=== PATIENT | male | born 1945 | race Caucasian/White ===

== ENCOUNTER 2018-06-03 11:04 | Emergency (ER) | payer OTHER ==
[~2018-06-03 11:04] MED LIST: ALLO-119 PO; ASPI-1471 PO; ATOR40TA24 PO; CHOL10005 PO; INSU100I35 SQ; LOSA100T75 PO; METF-452 PO; METO25TA93 PO; OMEP40CA48 PO; RANI150C17 PO
--- NOTE | 2018-06-03 11:20 | ER Report ---
History and Physical Time Seen By MD: 11:18 Hx. of Stated Complaint: chest cold for 3-4 days HPI/ROS CHIEF COMPLAINT: Chest congestion HISTORY OF PRESENT ILLNESS: This is a 72-year-old male presents to the emergency department for chest congestion. Over the last 3-4 days he's had increased chest congestion with intermittent chest pain with coughing, states he does have a semi-productive cough. He's had intermittent aches and chills, no nausea or vomiting. Denies chest pain. No rashes. No headaches. No diarrhea. REVIEW OF SYSTEMS: Constitutional: As above. Eyes: No discharge. ENT: No sore throat. Cardiovascular: No chest pain, no palpitations. Respiratory: As above. Gastrointestinal: No abdominal pain, no vomiting. Genitourinary: No hematuria. Musculoskeletal: No back pain. Skin: No rashes. Neurological: No headache. Allergies: Coded Allergies: No Known Drug Allergies (Unverified , 06/27/17) Home Meds Active Scripts Albuterol Sulfate 0.083% (ALBUTEROL SULFATE 0.083%) 2.5 Mg/3 Ml Vial.neb, 2.5 MG INH Q4-6H PRN for SHORTNESS OF BREATH, #20 VIAL Prov:CLAUDE LANCE DISTRESSER-BC 06/03/18 Omeprazole (OMEPRAZOLE) 40 Mg Capsule.dr, 40 MG PO QDAY for 30 Days, #30 CAP Prov:ANALY RECIO JR, MD 05/23/17 Reported Medications Aspirin (ASPIR 81) 81 Mg Tablet.dr, 81 MG PO QDAY, TAB 05/24/17 Ranitidine Hcl (RANITIDINE HCL) 150 Mg Capsule, 150 MG PO BID, CAPSULE 05/24/17 Metoprolol Tartrate (METOPROLOL TARTRATE) 25 Mg Tablet, 2 TAB PO BID, TAB 05/24/17 Metformin Hcl (METFORMIN HCL) 1,000 Mg Tablet, 1 TAB PO BID, TAB 05/24/17 Losartan Potassium (LOSARTAN POTASSIUM) 100 Mg Tablet, 100 MG PO QDAY 05/24/17 Insulin Aspart 100 Un/Ml Pen (NOVOLOG FLEXPEN) 100 Unit/1 Ml Insuln.pen, 100 UNIT SQ 05/24/17 Cholecalciferol (Vitamin D3) (VITAMIN D3) Unknown Strength Tablet, PO, TAB 05/24/17 Atorvastatin Calcium (LIPITOR) 40 Mg Tablet, 1 TAB PO QDAY, TAB 05/24/17 Allopurinol (ZYLOPRIM) 300 Mg Tablet, 300 MG PO QDAY, TAB 05/24/17 Past Medical/Surgical History Patient has a past medical and surgical history of hypertension, hypercholesterolemia, questionable COPD, broken arm. Reviewed Nurses Notes: Yes Smoking Status: Former Smoker Constitutional Vital Sign - Last 24 Hours 06/03/18 06/03/18 06/03/18 06/03/18 10:38 11:09 11:30 11:38 Temp 99.4 Pulse 74 71 70 Resp 20 18 B/P (MAP) 148/80 110/65 (80) Pulse Ox 91 85 88 O2 Delivery Nasal Cannula Room Air O2 Flow Rate 2.0 06/03/18 06/03/18 06/03/18 06/03/18 11:38 11:40 11:45 12:00 Pulse 69 68 Resp 18 B/P (MAP) 111/69 (83) Pulse Ox 91 91 O2 Delivery Nasal Cannula O2 Flow Rate 2.0 2.0 06/03/18 12:42 Pulse Ox 91 O2 Delivery Room Air Physical Exam General Appearance: The patient is alert, has no immediate need for airway protection and no signs of toxicity. Eyes: Pupils equal and round no pallor or injection. ENT, Mouth: Mucous membranes are dry. Respiratory: Diminished lung sounds in the bases, and expiratory wheezes in the upper lobes otherwise unremarkable. Cardiovascular: Regular rate and rhythm, no murmurs, clicks or rubs. Gastrointestinal: Abdomen is round, soft and non tender, no masses, bowel sounds normal. Neurological: Alert and oriented 4. Moving all extremities. Following all commands. No focal neuro deficits. Skin: Warm and dry, no rashes. Musculoskeletal: Neck is supple non tender. Extremities are nontender, nonswollen and have full range of motion. DIFFERENTIAL DIAGNOSIS: After history and physical exam differential diagnosis was considered for shortness of breath including but not limited to pulmonary infectious process, COPD, asthma, influenza, pulmonary embolus and congestive heart failure. Medical Decision Making Data Points Result Diagram: 06/03/18 1135 06/03/18 1135 Laboratory Hematology Test 06/03/18 11:35 06/03/18 12:30 Red Blood Count 4.14 M/uL (4.00-5.60) Mean Corpuscular Volume 92.8 fL (80.0-96.0) Mean Corpuscular Hemoglobin 31.5 pg (26.0-33.0) Mean Corpuscular Hemoglobin Concent 33.9 g/dL (32.0-36.0) Red Cell Distribution Width 14.5 % (11.5-14.5) Mean Platelet Volume 8.0 fL (7.2-11.1) Neutrophils (%) (Auto) 73.7 % (39.4-72.5) Lymphocytes (%) (Auto) 16.8 % (17.6-49.6) Monocytes (%) (Auto) 8.2 % (4.1-12.4) Eosinophils (%) (Auto) 0.9 % (0.4-6.7) Basophils (%) (Auto) 0.4 % (0.3-1.4) Nucleated RBC Relative Count (auto) 0.1 /100WBC Neutrophils # (Auto) 3.7 K/uL (2.0-7.4) Lymphocytes # (Auto) 0.8 K/uL (1.3-3.6) Monocytes # (Auto) 0.4 K/uL (0.3-1.0) Eosinophils # (Auto) 0.0 K/uL (0.0-0.5) Basophils # (Auto) 0.0 K/uL (0.0-0.1) Nucleated RBC Absolute Count (auto) 0.01 K/uL Sodium Level 135 mmol/L (137-145) Potassium Level 4.7 mmol/L (3.5-5.0) Chloride Level 100 mmol/L (98-107) Carbon Dioxide Level 24 mmol/L (22-30) Blood Urea Nitrogen 24 mg/dl (9-21) Creatinine 1.70 mg/dl (0.66-1.25) Glomerular Filtration Rate Calc 39.8 Random Glucose 246 mg/dl (75-110) Calcium Level 8.5 mg/dl (8.4-10.2) Total Bilirubin 0.6 mg/dl (0.2-1.3) Aspartate Amino Transf (AST/SGOT) 23 U/L (0-35) Alanine Aminotransferase (ALT/SGPT) 28 U/L (0-56) Alkaline Phosphatase 101 U/L (0-126) Troponin I < 0.012 ng/ml Total Protein 6.7 g/dl (6.3-8.2) Albumin 3.9 g/dl (3.5-5.0) Influenza Virus Type A (PCR) Positive (NEGATIVE) Influenza Virus Type B (PCR) Negative (NEGATIVE) Urine Color Yellow Urine Clarity Slightly-cloudy Urine pH 5.0 pH (4.8-9.5) Urine Specific Coffey 1.021 Urine Protein 100 mg/dL (NEGATIVE) Urine Glucose (UA) 50 mg/dL (NEGATIVE) Urine Ketones Trace mg/dL (NEGATIVE) Urine Blood Negative (NEGATIVE) Urine Nitrite Negative (NEGATIVE) Urine Bilirubin Negative (NEGATIVE) Urine Urobilinogen Negative mg/dL (0.2-1.9) Urine Leukocyte Esterase Negative (NEGATIVE) Urine RBC 1 /HPF (0-2/HPF) Urine WBC 1 /HPF (0-5/HPF) Urine Squamous Epithelial Cells None /LPF (</=FEW) Urine Bacteria Negative /HPF (NONE-FEW) Urine Hyaline Casts Few /LPF (NONE-FEW) Urine Mucus None /HPF (NONE-FEW) Chemistry Test 06/03/18 11:35 06/03/18 12:30 White Blood Count 5.0 k/uL (4.5-11.0) Red Blood Count 4.14 M/uL (4.00-5.60) Hemoglobin 13.0 g/dL (14.0-18.0) Hematocrit 38.4 % (42.0-52.0) Mean Corpuscular Volume 92.8 fL (80.0-96.0) Mean Corpuscular Hemoglobin 31.5 pg (26.0-33.0) Mean Corpuscular Hemoglobin Concent 33.9 g/dL (32.0-36.0) Red Cell Distribution Width 14.5 % (11.5-14.5) Platelet Count 155 K/uL (150-450) Mean Platelet Volume 8.0 fL (7.2-11.1) Neutrophils (%) (Auto) 73.7 % (39.4-72.5) Lymphocytes (%) (Auto) 16.8 % (17.6-49.6) Monocytes (%) (Auto) 8.2 % (4.1-12.4) Eosinophils (%) (Auto) 0.9 % (0.4-6.7) Basophils (%) (Auto) 0.4 % (0.3-1.4) Nucleated RBC Relative Count (auto) 0.1 /100WBC Neutrophils # (Auto) 3.7 K/uL (2.0-7.4) Lymphocytes # (Auto) 0.8 K/uL (1.3-3.6) Monocytes # (Auto) 0.4 K/uL (0.3-1.0) Eosinophils # (Auto) 0.0 K/uL (0.0-0.5) Basophils # (Auto) 0.0 K/uL (0.0-0.1) Nucleated RBC Absolute Count (auto) 0.01 K/uL Glomerular Filtration Rate Calc 39.8 Calcium Level 8.5 mg/dl (8.4-10.2) Total Bilirubin 0.6 mg/dl (0.2-1.3) Aspartate Amino Transf (AST/SGOT) 23 U/L (0-35) Alanine Aminotransferase (ALT/SGPT) 28 U/L (0-56) Alkaline Phosphatase 101 U/L (0-126) Troponin I < 0.012 ng/ml Total Protein 6.7 g/dl (6.3-8.2) Albumin 3.9 g/dl (3.5-5.0) Influenza Virus Type A (PCR) Positive (NEGATIVE) Influenza Virus Type B (PCR) Negative (NEGATIVE) Urine Color Yellow Urine Clarity Slightly-cloudy Urine pH 5.0 pH (4.8-9.5) Urine Specific Coffey 1.021 Urine Protein 100 mg/dL (NEGATIVE) Urine Glucose (UA) 50 mg/dL (NEGATIVE) Urine Ketones Trace mg/dL (NEGATIVE) Urine Blood Negative (NEGATIVE) Urine Nitrite Negative (NEGATIVE) Urine Bilirubin Negative (NEGATIVE) Urine Urobilinogen Negative mg/dL (0.2-1.9) Urine Leukocyte Esterase Negative (NEGATIVE) Urine RBC 1 /HPF (0-2/HPF) Urine WBC 1 /HPF (0-5/HPF) Urine Squamous Epithelial Cells None /LPF (</=FEW) Urine Bacteria Negative /HPF (NONE-FEW) Urine Hyaline Casts Few /LPF (NONE-FEW) Urine Mucus None /HPF (NONE-FEW) Urinalysis Test 06/03/18 12:30 Urine Color Yellow Urine Clarity Slightly-cloudy Urine pH 5.0 pH (4.8-9.5) Urine Specific Coffey 1.021 Urine Protein 100 mg/dL (NEGATIVE) Urine Glucose (UA) 50 mg/dL (NEGATIVE) Urine Ketones Trace mg/dL (NEGATIVE) Urine Blood Negative (NEGATIVE) Urine Nitrite Negative (NEGATIVE) Urine Bilirubin Negative (NEGATIVE) Urine Urobilinogen Negative mg/dL (0.2-1.9) Urine Leukocyte Esterase Negative (NEGATIVE) Urine RBC 1 /HPF (0-2/HPF) Urine WBC 1 /HPF (0-5/HPF) Urine Squamous Epithelial Cells None /LPF (</=FEW) Urine Bacteria Negative /HPF (NONE-FEW) Urine Hyaline Casts Few /LPF (NONE-FEW) Urine Mucus None /HPF (NONE-FEW) EKG/Imaging EKG Interpretation 12 lead EKG: Time of EKG 1125. Rhythm: Sinus rhythm with a ventricular rate of 71 bpm. 1st degree AV block. Noble: normal QRS: normal ST segments: No ST depression or elevation identified. Imaging Location: [facility] Patient: Tacho Gonzalez : 1945 Visit/Account:[id number] Date of Sevice: 06/03/2018 2 VIEWS CHEST INDICATION: Chest pain. Cough and shortness breath. COMPARISON: None available FINDINGS: Cardiomediastinal silhouette and pulmonary vessels within normal limits. There is no focal infiltrate or lobar consolidation. There is no pneumothorax or pleural effusion. There is a faint nodular opacity in the medial right upper lobe however this is underlying the first rib and sternal junction. No other nodules. Upper abdomen is unremarkable. No acute bony abnormality. IMPRESSION: 1. No acute cardiopulmonary process. 2. Small nodular opacity seen in the medial right upper lobe. This may be costochondral calcification from the first rib and manubrium. However apical lordotic view of the chest can evaluate for any underlying parenchymal abnormality. Report Dictated By: Anthony Avilez at 06/03/2018 12:39 PM Report E-Signed By: Anthony Avilez at 06/03/2018 12:41 PM WSN:[id number] ED Course/Re-evaluation Clinical Indication for ER IV: Hydration, IV Access ED Course The patient was admitted to a room. A history of physical were obtained. Differential diagnoses were considered. An IV was started. A 1 L normal saline bolus was given. EKG showing sinus rhythm with a first-degree AV block. A CBC, CMP, troponin were obtained. Patient was given 1 DuoNeb which did provide some relief of the patient's symptoms, increased aeration on reexamination. CBC unremarkable, chemistry showing sodium 135, BUN 24, creatinine 1.7, glucose 246, negative troponin, UA showing glucose other pearson unremarkable, positive for influenza A. No acute findings on a two-view chest x-ray, a nodule was noted on the x-ray, I discussed this with the patient. [facility] however I did recommend establishing with a primary care provider locally. The patient was hypoxic, I did recommend going home with oxygen as he was reluctant to stay in the hospital, we were able to sit the patient up with home oxygen, a nebulizer and concentrator. As the patient's symptoms have been greater than 72 hours, the patient did not meet the recommend criteria for Tamiflu, the patient and I discussed this. Patient states he'll go home, continue wearing the oxygen use the nebulizers as needed, take ibuprofen and Tylenol, follow-up and establish with a primary care provider hopefully within one week. Return to ER for any other concerns or worsening symptoms. Decision to Disposition Date: Jun 03, 2018 Decision to Disposition Time: 13:25 Depart Departure Latest Vital Signs Vital Signs Date Time Temp Pulse Resp B/P (MAP) Pulse Ox O2 Delivery O2 Flow Rate FiO2 06/03/18 12:42 91 Room Air 06/03/18 12:00 68 111/69 (83) 06/03/18 11:45 18 06/03/18 11:40 2.0 06/03/18 11:09 99.4 Impression: Primary Impression: Influenza A Additional Impression: Hypoxia Condition: Improved Disposition: HOME OR SELF-CARE New Scripts Albuterol Sulfate 0.083% (ALBUTEROL SULFATE 0.083%) 2.5 Mg/3 Ml Vial.neb 2.5 MG INH Q4-6H PRN for SHORTNESS OF BREATH, #20 VIAL Prov: CLAUDE LANCE DISTRESSER-BC 06/03/18 Departure Forms: ER Transition Record, Home Oxygen, Nebulizer RX, Home Oxygen Company Chosen by Patient: [facility] Home [facility]xygen Durable Medical Equipment-Oxygen: Oxygen Concentrator, Portable Oxygen Gas, Nebulizer Reason for Use/Diagnosis: Influenza A, hypoxia Start Date of the Order: Jun 03, 2018 Dosage or Concentration (if applicable) - LPM: 2 Route of Administration (if applicable): Nasal Cannula Frequency of Use: Continuous Duration Home O2 Required: 30 Duration Units: Days Room Air Oxygen Saturation: 80 ER Prescribing Physician's Name: Other NPI Numbers for Local ER MDs: Other Medications Reconciliation, Patient Portal Information Patient Instructions: Hypoxia (ED), Influenza (ED) Additional Instructions: You have influenza A. Please use the oxygen when you are sleeping, and if your up moving around. Use the nebulizer as needed. As you have had symptoms for the last 4 days, Tamiflu is not recommended at this time. Antibiotics are not recommended. Take ibuprofen or Tylenol as needed. Be sure to monitor your blood sugars. Get plenty of rest. Continue drinking plenty of water. Please establish with a new primary care provider locally within one week. Return to the emergency department for any acute concerns or worsening symptoms. Problem Qualifiers CLAUDE LANCE DISTRESSER-BC Jun 03, 2018 11:20
[2018-06-03] MEDS ORDERED: NS(*) 0.9% 1000 ML BAG 1,000 ML IV ONE (11:24)
[2018-06-03] MEDS ORDERED: ALBUTEROL/IPRATROPIUM 3 ML NEB NEB ONE (11:25)
[2018-06-03] MEDS ORDERED: ASPIRIN 81 MG CHEW PO ONE (11:25)
[2018-06-03 11:53] LABS: PLATELET COUNT, AUTOMATED 155 K/uL (150-450)
--- NOTE | 2018-06-03 11:54 | EKG ---
FACILITY: [facility] [place] PATIENT NAME: KATERYNA MAHONEY : [id number] MR: [id number] V: [id number] EXAM DATE: ORDERING PHYSICIAN: CLAUDE LANCE TECHNOLOGIST: Test Reason : Blood Pressure : / mmHG Vent. Rate : 071 BPM Atrial Rate : 071 BPM P-R Int : 224 ms QRS Dur : 082 ms QT Int : 388 ms P-R-T Axes : 056 034 059 degrees QTc Int : 421 ms Sinus rhythm with 1st degree AV block Otherwise normal ECG No previous ECGs available Confirmed by Jordan Hobson ([id number]) on 06/03/2018 10:42:31 PM Referred By: Confirmed By:Jordan Henriquez
[2018-06-03 12:00] VITALS: BP 111/69
--- NOTE | 2018-06-03 12:45 | RADIOLOGY IMAGING REPORT ---
FACILITY: [facility] [place] PATIENT NAME: Tacho Gonzalez : 1945 MR: [id number] V: [id number] EXAM DATE: ORDERING PHYSICIAN: CLAUDE LANCE TECHNOLOGIST: Location: [facility] [place] Patient: Tacho Gonzalez : 1945 Visit/Account:[id number] Date of Sevice: 06/03/2018 2 VIEWS CHEST INDICATION: Chest pain. Cough and shortness breath. COMPARISON: None available FINDINGS: Cardiomediastinal silhouette and pulmonary vessels within normal limits. There is no focal infiltrate or lobar consolidation. There is no pneumothorax or pleural effusion. There is a faint nodular opacity in the medial right upper lobe however this is underlying the first rib and sternal junction. No other nodules. Upper abdomen is unremarkable. No acute bony abnormality. IMPRESSION: 1. No acute cardiopulmonary process. 2. Small nodular opacity seen in the medial right upper lobe. This may be costochondral calcification from the first rib and manubrium. However apical lordotic view of the chest can evaluate for any und erlying parenchymal abnormality. Report Dictated By: Anthony Avilez at 06/03/2018 12:39 PM Report E-Signed By: Anthony Avilez at 06/03/2018 12:41 PM WSN:[id number]
[2018-06-03] MEDS ORDERED: ALBU2.5V36 INH (12:55)
== END 2018-06-03 13:30 | disposition home or self-care (01) ==
LOC: ER 11:04
DX: J09.X2 Influenza due to identified novel influenza A virus with other respiratory manifestations (principal); R09.02 Hypoxemia
CPT/HCPCS: 71046; 81001; 84484; 85025; 87502; 93005; 94640; 96360; 99284; J7030; J7620; 82040; 82247; 82310; 82374; 82435; 82565; 82947; 84075; 84132; 84155; 84295; 84450; 84460; 84520

== ENCOUNTER 2018-07-24 16:58 | Inpatient (IN) | payer OTHER ==
[~2018-07-24] VITALS: Ht 177.8 cm; Wt 127.0 kg
[~2018-07-24 16:58] MED LIST changes: -ALBU8.5H IH; -AMLO-127 PO; -CHOL100059 PO; -CITA-137 PO; -FLAS1EAC2 ASDIRECTED; -FLAS1KIT2 SQ; -GABA-547 PO; -LOSA25TA57 PO; -MULT-1167 PO; -MULT-991 PO; -MULT1CAP53 PO; -OMEP-137 PO; -SENN1TAB PO; -SODI104S3; -TERA1CAP38 PO; -TRAM-420 PO; -UBID100C48 PO; -UBIQ75CA PO; -[UNRECOGNIZED DRUG - OTHER] PO; -[UNRECOGNIZED DRUG - OTHER] PO
[2018-07-24] MEDS ORDERED: DIPHTH/TETANUS/ACEL. PERTUSSIS IM ONLY ONE (17:15)
[2018-07-24] MEDS ORDERED: EMS NS 0.9%(*) 1000 ML BAG 1,000 ML IV ONE (17:20)
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
[2018-07-24 17:30] LABS: PLATELET COUNT, AUTOMATED 191 K/uL (150-450)
[2018-07-24] MEDS ORDERED: IOPAMIDOL 76% 150 ML INFUS BTL 0 ML ONE (17:33)
[2018-07-24 17:34] LABS: INR 0.97
[2018-07-24] MEDS ORDERED: IOPAMIDOL 76% 150 ML INFUS BTL 150 ML ONE (17:39)
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
--- NOTE | 2018-07-24 19:07 | RADIOLOGY IMAGING REPORT ---
FACILITY: [facility] - [place] PATIENT NAME: Tacho Gonzalez : 1945 MR: [id number] V: [id number] EXAM DATE: ORDERING PHYSICIAN: ARNAV RAY TECHNOLOGIST: Location: [facility] Patient: Tacho Gonzalez : 1945 Visit/Account:[id number] Date of Sevice: 07/24/2018 CT VERTEBRA CERVICAL (NON CON) EXAMINATION: Cervical spine CT Additional Pertinent history: none COMPARISON STUDIES: none TECHNIQUE: Axial images were obtained from the skull base through the upper thoracic spine without I V contrast administration. Coronal and sagittal reformatted images were obtained from the axial [facility] data. One of the following dose optimization techniques was utilized in the performance of this exam: autom ated exposure control; adjustment of the mA and/or kV according to the patient's size; or use of an i terative reconstruction technique. Specific details can be referenced in the facility's radiology CT exam operational policy. FINDINGS: Pre-vertebral soft tissues: negative Alignment: There is straightening of the normal cervical lordosis. Vertebral bodies: Vertebral bodies are intact. Posterior elements: Posterior elements are intact. Facets are in good alignment. Disc Spaces: There is disc space narrowing at C3-4 to C6-7, with anterior osteophytes seen. Visualized lung / mediastinum: negative IMPRESSION: 1. No evidence of cervical spine fracture or malalignment. 2. Multilevel cervical spondylosis and facet arthropathy. Report Dictated By: Dwight Luis at 07/24/2018 6:56 PM Report E-Signed By: Dwight Luis at 07/24/2018 7:02 PM WSN:[id number]
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
[2018-07-24] MEDS ORDERED: NS(*) 0.9% 1000 ML BAG 1,000 ML IV PRN (19:32)
[2018-07-24] MEDS ORDERED: FLUSH 10 ML SYR IVP PRN (19:35)
[2018-07-24] MEDS ORDERED: ONDANSETRON 4 MG/2 ML VIAL IVP PRN (19:35)
[2018-07-24] MEDS ORDERED: HYDROmorphone PCA 6 MG/30 ML IV PRN (19:35)
[2018-07-24] MEDS ORDERED: NALOXONE HCL 0.4 MG/ML VIAL IVP PRN (19:35)
[2018-07-24] MEDS ORDERED: KCL/D1/2NS 20 MEQ 1000 ML 1,000 ML IV SCH (20:05)
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
[2018-07-24] MEDS: ALBUTEROL/IPRATROPIUM 3 ML NEB NEB SCH (20:26)
[2018-07-24] MEDS ORDERED: PCA LOCKBOX KEYS XX ONE (20:40)
[2018-07-24] MEDS ORDERED: PCA LOCKBOX KEYS XX PRN (20:45)
[2018-07-24 23:25] VITALS: BP 99/70
[2018-07-24] MEDS: INSULIN HUM LISPRO 100 UN/ML 3 ML VIAL SUBQ PRN (23:33)
[2018-07-25 02:16] VITALS: BP 118/86
[2018-07-25] MEDS: ALBUTEROL/IPRATROPIUM 3 ML NEB NEB SCH ×5 (05:45→22:04)
[2018-07-25] MEDS ORDERED: KCL/D1/2NS 20 MEQ 1000 ML 1,000 ML IV SCH (06:54)
[2018-07-25 06:57] LABS: PLATELET COUNT, AUTOMATED 147 K/uL (150-450)
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
[2018-07-25] MEDS ORDERED: MAGNESIUM HYDROXIDE* 30ML UDCP PO PRN (07:25)
[2018-07-25 07:33] VITALS: BP 133/88
[2018-07-25] MEDS ORDERED: PANTOPRAZOLE SOD 40 MG IV VIAL IVP SCH (09:00)
--- NOTE | 2018-07-25 09:06 | NUR ---
Physical Therapy Impression PT/OT co eval complete. Pt is slightly impulsive with transfers, but this may also be due to the fact that he is [place]. Pt completed transfers wtih SBA and RW, ambulation x150' with RW and SBA. SpO2 WNL on 4L O2 with mobility. Pt will benefit from stair training prior to d/c home with his daughter. Physical Therapy Goals 1: Pt to complete bed mobility with SBA 2: Pt to complete transfers with SBA and appropriate AD 3: Pt to ambulate 150' with SBA and appropriate AD 4: Pt to asc/desc flight of stairs with SBA Patient's Goals
--- NOTE | 2018-07-25 09:42 | NUR ---
Occupational Therapy Impression Initial OT/PT evaluation. SBA ambulation x150ft with RW. SpO2 >88% on 4L. Pt impulsive with decreased safety awareness. Declined toileting. Seated up in chair at end of tx. Family and pt educated on where to obtain RW if desired. Pt ready for discharge when medically appropriate. Rec continued assist from family with IADLs. Occupational Therapy Goals 1) Pt will be SBA UB/LB dressing. 2) Pt will be SBA grooming/hygiene. 3) Pt will be SBA toilet task. Patient's Goal
[2018-07-25] MEDS: DOCUSATE SODIUM 100 MG CAP PO SCH ×2 (09:46→21:08)
[2018-07-25] MEDS: POLYETHYLENE GLYCOL 17 GM PKT PO SCH (09:46)
[2018-07-25 11:34] VITALS: BP 115/86
[2018-07-25] MEDS: INSULIN HUM LISPRO 100 UN/ML 3 ML VIAL SUBQ PRN ×2 (12:14→18:32)
[2018-07-25] MEDS: NICOTINE 14 MG/24 HR PATCH TD SCH (14:10)
[2018-07-25 15:19] VITALS: BP 114/88
[2018-07-25 15:48] VITALS: Ht 177.8 cm; Wt 127.0 kg
[2018-07-25 20:20] VITALS: BP 148/70
[2018-07-25] MEDS ORDERED: INSULIN HUM LISPRO 100 UN/ML 3 ML VIAL SUBQ PRN (20:35)
--- NOTE | 2018-07-25 20:46 | Hospitalist Progress Note ---
Subjective Progress Notes Subjective Patient seen to help manage diabetes mellitus. Reviewed his regimen of Lantus, Novolog, and metformin. Physical Exam Vital Signs Date Time Temp Pulse Resp B/P (MAP) Pulse Ox O2 Delivery O2 Flow Rate FiO2 07/25/18 17:48 88 16 07/25/18 17:39 90 Nasal Cannula 4.0 07/25/18 15:19 97.5 114/88 (97) Intake and Output 07/25/18 07:00 Intake Total 900 ml Balance 900 ml IV Total 900 ml # Voids 2 General Appearance: Alert, Awake ENT: Other (multiple abrasions) Result Diagram: 07/25/18 0604 07/25/18 0604 Item Value Date Time Whole Blood Glucose 211 mg/DL H 07/25/18 1829 Whole Blood Glucose 166 mg/DL H 07/25/18 1157 Whole Blood Glucose 145 mg/DL H 07/25/18 0541 Whole Blood Glucose 166 mg/DL H 07/24/18 2329 Whole Blood Glucose 140 mg/DL H 07/24/18 2043 Whole Blood Glucose 122 mg/DL H 07/24/18 1952 Random Glucose 45 mg/dl *L 07/24/18 1630 Assessment and Plan Problems: (1) Diabetes Status: Chronic Assessment & Plan: He has been managed with a regimen of Lantus 60 units SQ qHS, Novolog 33 units AM and 35 units PM, and metformin 500mg BID. He does admit he does not follow an ADA diet. With this regimen, he runs significant risk for hypoglycemia, especially while he is on an ADA diet. Will modify his regimen to Lantus 25 units BID and use SSI Humalog level 3 for now. Will stop the high dose Novolog as it increases the risk of hypoglycemia. Will also hold the metformin for at least 48 hours after the IV contrast he received for CT scan (done 07/24). Will follow along and further modify as needed. Exam Sepsis Risk: No Definite Risk Problem Qualifiers (1) Diabetes: Diabetes mellitus type: type 2 KAIDEN GARCIA MD Jul 25, 2018 20:46
[2018-07-25] MEDS ORDERED: INSULIN GLARGINE 100 U/ML 3 ML PEN SUBQ SCH (21:00)
[2018-07-25] MEDS: TERAZOSIN HCL 1 MG CAP PO SCH (21:08)
[2018-07-25] MEDS: INSULIN GLARGINE 100 U/ML 3 ML PEN SUBQ SCH (21:09)
[2018-07-25 23:22] VITALS: BP 122/72
[2018-07-26] MEDS: ALBUTEROL/IPRATROPIUM 3 ML NEB NEB SCH ×6 (02:28→22:08)
[2018-07-26 03:17] VITALS: BP 132/64
[2018-07-26 06:26] LABS: PLATELET COUNT, AUTOMATED 118 K/uL (150-450)
[2018-07-26 07:59] VITALS: BP 133/76
[2018-07-26] MEDS: POLYETHYLENE GLYCOL 17 GM PKT PO SCH (08:26)
[2018-07-26] MEDS: LOSARTAN POTASSIUM 50 MG TAB PO SCH (08:27)
[2018-07-26] MEDS: INSULIN GLARGINE 100 U/ML 3 ML PEN SUBQ SCH ×2 (08:28→21:37)
[2018-07-26] MEDS: CITALOPRAM HYDROBROM 20 MG TAB PO SCH (08:28)
[2018-07-26] MEDS: DOCUSATE SODIUM 100 MG CAP PO SCH ×2 (08:28→20:27)
[2018-07-26] MEDS: PANTOPRAZOLE SOD 40 MG TABEC PO SCH (08:28)
[2018-07-26] MEDS: NICOTINE 14 MG/24 HR PATCH TD SCH (08:29)
[2018-07-26] MEDS: ENOXAPARIN 40 MG/0.4ML SYR SC SCH (08:29)
--- NOTE | 2018-07-26 08:33 | NUR ---
Shadow from Pharmacy went over med rec with pt [id number] 07/26/18 Addendum: 07/26/18 at 0842 by MORGAN MCMILALN RN Amended: Links added.
[2018-07-26] MEDS: traMADol 50 MG TAB PO PRN ×3 (08:50→20:28)
[2018-07-26] MEDS ORDERED: INSULIN ASPART 100 U/ML 3 ML PEN SQ SCH (09:00)
[2018-07-26] MEDS ORDERED: CARVEDILOL 25 MG TABLET PO SCH (09:00)
[2018-07-26] MEDS ORDERED: TRAM-420 PO (09:08)
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
--- NOTE | 2018-07-26 10:00 | NUR ---
Physical Therapy Impression Pt seated in chair with O2 at 4 L/min upon PT arrival. At baseline, pt does not wear O2 during the day. Pt agreeable to attempt stairs with therapist after toileting. Pt noted to be nodding off and very drowsy during conversation regarding his stairs in the home environment. Pt is very impulsive with turns and use of FWW is somewhat unsafe as he "marcelo it" off to the side and attempts to walk around it when transferring back to the chair. O2 tubing also contributes to increased fall risk, as pt turns opposite the tubing, causing it to be wrapped around his legs with negotiation of pathways in room. Home requires 2 platform steps to access deck, then 4 steps without rail to enter home, followed by full flight of carpeted stairs with rail on L) to descend to basement. Pt is alone for the majority of each day, especially on weekends. Pt will need to be indep with functional mobility and safe decision making regarding medication management and O2 tubing use to return home. Pt is not currently at his prior level of function and would certainly benefit from further short-term subacute rehab prior to return to his basement level apartment. Physical Therapy Goals 1: Pt to complete bed mobility with SBA 2: Pt to complete transfers with SBA and appropriate AD 3: Pt to ambulate 150' with SBA and appropriate AD 4: Pt to asc/desc flight of stairs with SBA Patient's Goals
[2018-07-26 12:08] VITALS: BP 108/58
[2018-07-26] MEDS: ACETAMINOPHEN 325 MG TAB PO PRN (12:32)
--- NOTE | 2018-07-26 12:52 | NUR ---
ECF Referral - Met with patient and daughter and explained rehab philosophy and need for strengthening. Unsure of [place] insurance coverage, confirmed he has Medicare. Will have a 3 night qualifying stay on 07/27. Can be admitted on 07/27 if medically appropriate. PASRR negative.
--- NOTE | 2018-07-26 13:32 | Hospitalist Progress Note ---
Subjective Progress Notes Subjective He has no complaints this morning. He had no acute events overnight. Hospitalist continue to manage diabetes treatment. Patient Complains of: Cardiovascular: No: Chest Pain Respiratory: No: Shortness of Breath Physical Exam Vital Signs Date Time Temp Pulse Resp B/P (MAP) Pulse Ox O2 Delivery O2 Flow Rate FiO2 07/26/18 12:08 98.7 81 18 108/58 (75) 92 Nasal Cannula 4.0 Intake and Output 07/26/18 07:00 Intake Total 676 ml Balance 676 ml Intake Oral 676 ml # Voids 4 General Appearance: Alert, Awake, No Acute Distress Psych: Alert & Oriented X3, Appropriate Mood & Affect Result Diagram: 07/26/1843 07/26/18542 Assessment and Plan Problems: (1) Diabetes Status: Chronic Assessment & Plan: He has been managed with a regimen of Lantus 60 units SQ qHS, Novolog 33 units AM and 35 units PM, and metformin 500mg BID. He does admit he does not follow an ADA diet. With this regimen, he runs significant risk for hypoglycemia, especially while he is on an ADA diet. Will modify his regimen to Lantus 25 units BID and use SSI Humalog level 3 for now. Will stop the high dose Novolog as it increases the risk of hypoglycemia. Will also hold the metformin for at least 48 hours after the IV contrast he received for CT scan (done 07/24). Will follow along and further modify as needed. Exam Sepsis Risk: No Definite Risk Problem Qualifiers (1) Diabetes: Diabetes mellitus type: type 2 Diabetes mellitus fire inspector insulin use: with fdc use Diabetes mellitus complication status: without complication Qualified Codes: E11.9 - Type 2 diabetes mellitus without complications; Z79.4 - monogram maker (current) use of insulin LIZBET HERRERA ATHLETIC SHOE DESIGNER Jul 26, 2018 13:32
--- NOTE | 2018-07-26 14:35 | NUR ---
Occupational Therapy Impression CGA ambulation with RW. V/c's for safety and use of RW. Total A to manage O2 tubing. SBA toileting. Close SBA standing oral care sinkfront. Mod (I) bed mobility with use of trapeze. Pt with decreased balance, poor safety awareness. VSS. SpO2>90% on 4L. Rec STSAR. Occupational Therapy Goals 1) Pt will be SBA UB/LB dressing. 2) Pt will be SBA grooming/hygiene. 3) Pt will be SBA toilet task. Patient's Goal
[2018-07-26 15:57] VITALS: BP 111/64
[2018-07-26] MEDS ORDERED: metFORMIN HCL 500 MG TAB PO SCH (17:00)
[2018-07-26] MEDS: metFORMIN HCL 500 MG TAB PO SCH (17:29)
[2018-07-26 20:17] VITALS: BP 129/80
[2018-07-26] MEDS: CARVEDILOL 25 MG TABLET PO SCH (20:27)
[2018-07-26] MEDS: TERAZOSIN HCL 1 MG CAP PO SCH (20:27)
[2018-07-26] MEDS: GABAPENTIN 100 MG CAP PO SCH (20:28)
[2018-07-26] MEDS ORDERED: ATORVASTATIN 10 MG TAB PO SCH (21:00)
[2018-07-26 23:38] VITALS: BP 106/80
[2018-07-27] MEDS: traMADol 50 MG TAB PO PRN ×2 (01:22→10:04)
[2018-07-27] MEDS: ALBUTEROL/IPRATROPIUM 3 ML NEB NEB SCH ×3 (02:38→09:52)
[2018-07-27 03:24] VITALS: BP 125/68
[2018-07-27 07:01] VITALS: BP 120/75
[2018-07-27] MEDS ORDERED: BISACODYL 10 MG SUPP PR ONE (08:00)
[2018-07-27] MEDS ORDERED: BISACODYL 10 MG SUPP PR PRN (08:00)
--- NOTE | 2018-07-27 08:18 | Hospitalist Progress Note ---
Subjective Progress Notes Subjective Feeling better overall. Physical Exam Vital Signs Date Time Temp Pulse Resp B/P (MAP) Pulse Ox O2 Delivery O2 Flow Rate FiO2 07/27/18 07:50 92 Nasal Cannula 4.5 07/27/18 07:01 98.5 75 16 120/75 (90) Intake and Output 07/27/18 07:00 Intake Total 840 ml Balance 840 ml Intake Oral 840 ml # Voids 4 General Appearance: Alert, Awake, Other (Slight increased work of breathing. Large hematoma over left forehead.) Eyes: Other (Ecchymosis.) ENT: Other (Facial bruising and abrasions noted.) Cardiovascular: Regular Rate and Rhythm Respiratory: Other (Diffuse expiratory wheezing.) GI: Soft and Non-Tender Extremities: Warm, Perfused Integumentary: Other (Scattered hematomas, ecchymotic areas and abrasions over face and head.) Psych: Alert & Oriented X3, Appropriate Mood & Affect Result Diagram: 07/26/1854207/26/18542 Assessment and Plan Problems: (1) Diabetes Status: Chronic Assessment & Plan: He has been managed with a regimen of Lantus 60 units SQ qHS, Novolog 33 units AM and 35 units PM, and metformin 500mg BID. He does admit he does not follow an ADA diet. With this regimen, he runs significant risk for hypoglycemia, especially while he is on an ADA diet. Will modify his regimen to Lantus 25 units BID and use SSI Humalog level 3 for now. Will stop the high dose Novolog as it increases the risk of hypoglycemia. Will also hold the metformin for at least 48 hours after the IV contrast he received for CT scan (done 07/24). Will follow along and further modify as needed. His blood sugars have been nicely controlled on the current inpatient regimen. Will continue. He remains off of metformin for now. (2) COPD (chronic obstructive pulmonary disease) Status: Chronic Assessment & Plan: He is wheezing today.The patient does use inhalers at home. He can not recall the names. Will start Symbicort and add albuterol prn. Time Spent on Plan of Care: < 30 min Exam Sepsis Risk: No Definite Risk Problem Qualifiers (1) Diabetes: Diabetes mellitus type: type 2 Diabetes mellitus prison insulin use: with termite control technician use Diabetes mellitus complication status: without complication Qu alified Codes: E11.9 - Type 2 diabetes mellitus without complications; Z79.4 - intermission coordinator (current) use of insulin MINERVA GARCIA MD Jul 27, 2018 08:17
[2018-07-27] MEDS ORDERED: ALLOPURINOL 300 MG TAB PO SCH (09:00)
[2018-07-27] MEDS ORDERED: amLODIPine BESYL(*) 5 MG TAB PO SCH (09:00)
[2018-07-27] MEDS ORDERED: BUDESO/FORMOT 160/4.5 MCG 6 GM INH SCH (09:00)
[2018-07-27] MEDS: ENOXAPARIN 40 MG/0.4ML SYR SC SCH (09:40)
[2018-07-27] MEDS: PANTOPRAZOLE SOD 40 MG TABEC PO SCH (09:41)
[2018-07-27] MEDS: CARVEDILOL 25 MG TABLET PO SCH (09:41)
[2018-07-27] MEDS: POLYETHYLENE GLYCOL 17 GM PKT PO SCH (09:41)
[2018-07-27] MEDS: metFORMIN HCL 500 MG TAB PO SCH (09:41)
[2018-07-27] MEDS: GABAPENTIN 100 MG CAP PO SCH (09:41)
[2018-07-27] MEDS: DOCUSATE SODIUM 100 MG CAP PO SCH (09:41)
[2018-07-27] MEDS: LOSARTAN POTASSIUM 50 MG TAB PO SCH (09:42)
[2018-07-27] MEDS: CITALOPRAM HYDROBROM 20 MG TAB PO SCH (09:42)
[2018-07-27] MEDS: ACETAMINOPHEN 325 MG TAB PO PRN (10:04)
[2018-07-27] MEDS: NICOTINE 14 MG/24 HR PATCH TD SCH (10:04)
[2018-07-27] MEDS: INSULIN GLARGINE 100 U/ML 3 ML PEN SUBQ SCH (10:05)
== END 2018-07-27 10:05 | DRG 914 ==
LOC: ER 18:09 → MED 19:51
PROVIDERS: ADMIT Surgery; ATTEND Surgery
DX: S36.892A Contusion of other intra-abdominal organs, initial encounter (principal); Z68.41 Body mass index [BMI] 40.0-44.9, adult; S22.20XA Unspecified fracture of sternum, initial encounter for closed fracture; S22.43XA Multiple fractures of ribs, bilateral, initial encounter for closed fracture; E66.2 Morbid (severe) obesity with alveolar hypoventilation; V49.9XXA Car occupant (driver) (passenger) injured in unspecified traffic accident, initial encounter; S01.02XA Laceration with foreign body of scalp, initial encounter; Z91.11 Patient's noncompliance with dietary regimen; E11.649 Type 2 diabetes mellitus with hypoglycemia without coma; Z79.4 Long term (current) use of insulin; Z79.84 Long term (current) use of oral hypoglycemic drugs; I10 Essential (primary) hypertension
CPT/HCPCS: 36415; 36416; 70450; 71046; 71260; 72125; 74177; 80320; 82040; 82247; 82248; 82310; 82374; 82435; 82565; 82947; 82948; 83605; 83690; 84075; 84132; 84155; 84295; 84450; 84460; 84520; 85025; 85610; 85730; 90471; 90715; 94640; 97161; 97166; 99285; C9113; J1170; J1650; J1815; J3480; Q9967

== ENCOUNTER → 2018-07-24 | Outpatient (CLI) | payer OTHER ==
[~2018-07-24] MED LIST changes: +ALBU2.5V36 INH; +ALBU8.5H IH; +AMLO-127 PO; +CARV25TA78 PO; +CHOL100059 PO; +CITA-137 PO; +CITA-157 PO; +FLAS1EAC2 ASDIRECTED; +FLAS1KIT2 SQ; +GABA-547 PO; +GABA-549 PO; +LANI SUBQ; +LOSA25TA57 PO; +METF-450 PO; +MULT-1167 PO; +MULT-991 PO; +MULT1CAP53 PO; +OMEP-137 PO; +OXYGENHOME INH; +SENN1TAB PO; +SODI104S3; +TERA1CAP38 PO; +TERA5CAP59 PO; +TRAM-420 PO; +UBID100C48 PO; +UBIQ75CA PO; +[UNRECOGNIZED DRUG - OTHER] PO; +[UNRECOGNIZED DRUG - OTHER] PO
[2018-07-25 15:48] VITALS: BMI 40.2
== END ==
LOC: AMB 16:08
PROVIDERS: ATTEND Nurse Practitioner
DX: S00.83XA Contusion of other part of head, initial encounter (principal); R07.81 Pleurodynia; R10.11 Right upper quadrant pain; E11.649 Type 2 diabetes mellitus with hypoglycemia without coma; V49.9XXA Car occupant (driver) (passenger) injured in unspecified traffic accident, initial encounter
CPT/HCPCS: A0425; A0427

== ENCOUNTER 2018-07-27 10:05 | Inpatient (IN) | payer MEDICARE, OTHER ==
[2018-07-25 15:48] VITALS: Ht 177.8 cm; Wt 125.9 kg
[~2018-07-27] VITALS: Ht 177.8 cm; Wt 125.9 kg
[~2018-07-27 10:05] MED LIST changes: +TRAM-420 PO
[2018-07-27] MEDS ORDERED: LOSARTAN POTASSIUM 50 MG TAB PO SCH (10:27)
[2018-07-27] MEDS ORDERED: MAGNESIUM HYDROXIDE* 30ML UDCP PO PRN (10:27)
[2018-07-27] MEDS ORDERED: amLODIPine BESYL(*) 5 MG TAB PO SCH (10:27)
[2018-07-27] MEDS ORDERED: CARVEDILOL 25 MG TABLET PO SCH (10:27)
[2018-07-27] MEDS ORDERED: BISACODYL 10 MG SUPP PR PRN (10:27)
[2018-07-27] MEDS ORDERED: TERAZOSIN HCL 1 MG CAP PO SCH ×2 (10:27→21:00)
[2018-07-27 11:02] VITALS: BP 91/64
[2018-07-27 11:29] VITALS: BP 101/50
--- NOTE | 2018-07-27 12:47 | Consultant Pharmacy Review ---
Fire Protection Engineer Review Medication Review Do All Mecications have a Diag: No (Protonix) Beers Criteria Medication 2014 Alpha 1 Blockers: Terazosin Sliding Scale Insulin: Slidin Scale Insulin Proton Pump Inhibitors: Pantoprazole Other General Cautions Lexicomp Interaction Analysis A = No known interaction C = Monitor therapy X = Avoid combination B = No action needed D = Consider therapy modification Drugs in this analysis: Acetaminophen; CeleXA; Coreg; Cozaar; Docusate Sodium (SYN); HumaLOG; Hytrin (CAN); Ipratropium and Albuterol; Lantus; Lipitor; Lovenox; MetFORMIN; Milk of Magnesia Concentrate [OTC]; MiraLax [OTC]; Neurontin; Nicoderm CQ [OTC]; Norvasc; Protonix; Symbicort; TraMADol; Zyloprim * Drug-Drug Interactions X Coreg (Beta-Blockers (Nonselective)) Ipratropium and Albuterol (Beta2- Agonists) X Coreg (Beta-Blockers (Nonselective)) Symbicort (Beta2-Agonists) D Milk of Magnesia Concentrate [OTC] (Antacids) Zyloprim (Allopurinol) D Milk of Magnesia Concentrate [OTC] (Magnesium Salts) Neurontin (Gabapentin) Depends on Route D Neurontin (MATERIALS DEVELOPMENT ENGINEER Depressants) TraMADol (Opioid Agonists) C CeleXA (Agents with Antiplatelet Properties) Lovenox (Anticoagulants) Depends on International labeling C CeleXA (Selective Serotonin Reuptake Inhibitors) HumaLOG (Blood Glucose Lowering Agents) C CeleXA (Selective Serotonin Reuptake Inhibitors) Lantus (Blood Glucose Lowering Agents) C CeleXA (Selective Serotonin Reuptake Inhibitors) MetFORMIN (Blood Glucose Lowering Agents) C CeleXA (Selective Serotonin Reuptake Inhibitors) Neurontin (MATERIALS DEVELOPMENT ENGINEER Depressants) C CeleXA (Serotonin Modulators) TraMADol C Coreg (Beta-Blockers) HumaLOG (Insulins) C Coreg (Beta-Blockers) Hytrin (CAN) (Alpha1-Blockers) Depends on Dosage Form C Coreg (Beta-Blockers) Lantus (Insulins) C Coreg (P-glycoprotein/ABCB1 Inhibitors) Lipitor (P-glycoprotein/ABCB1 Substrates) C Cozaar (Angiotensin II Receptor Blockers) Lovenox (Heparins (Low Molecular Weight)) C HumaLOG (Hypoglycemia-Associated Agents) Lantus (Antidiabetic Agents) C HumaLOG (Hypoglycemia-Associated Agents) Lantus (Hypoglycemia-Associated Agents) C HumaLOG (Hypoglycemia-Associated Agents) MetFORMIN (Antidiabetic Agents) C Hytrin (CAN) (Alpha1-Blockers) Norvasc (Calcium Channel Blockers) C Ipratropium and Albuterol (Anticholinergic Agents) TraMADol (Opioid Agonists) C Ipratropium and Albuterol (Sympathomimetics) Symbicort (Sympathomimetics) C Lantus (Hypoglycemia-Associated Agents) MetFORMIN (Antidiabetic Agents) C Milk of Magnesia Concentrate [OTC] (Magnesium Salts) Norvasc (Calcium Channel Blockers) B Acetaminophen TraMADol (Opioid Agonists) B CeleXA (QT-prolonging Agents (Moderate Risk)) Ipratropium and Albuterol (QT- prolonging Agents (Indeterminate Risk - Caution)) B CeleXA (QT-prolonging Agents (Moderate Risk)) Symbicort (QT-prolonging Agents (Indeterminate Risk - Caution)) Note: Coreg is often given with Duoneb and Symbicort with no ill effects. Pneumococcal Vaccine HX Pneumo Vac ([id number]): Yes (2-3 years ago) HX Pneumo Vac (Pneumovax): Yes (2-3 years ago) Comments Regarding the Review Patient is up to date on Pneumococcal and influenza vaccinations. Please monitor patient for respiratory depression and falls due to Neurontin and Tramadol use. Please re-evaluate necessity of these medications on a weekly or every other week basis. CRISTINA YBARRA Jul 27, 2018 12:47
[2018-07-27] MEDS ORDERED: NALOXONE HCL 0.4 MG/ML VIAL IVP PRN (12:51)
[2018-07-27] MEDS: ALBUTEROL/IPRATROPIUM 3 ML NEB NEB SCH ×3 (13:21→21:52)
[2018-07-27 15:00] VITALS: BP 90/56
[2018-07-27] MEDS: traMADol 50 MG TAB PO PRN ×2 (15:37→21:29)
[2018-07-27] MEDS: BUDESO/FORMOT 160/4.5 MCG 6 GM INH SCH (17:52)
[2018-07-27] MEDS: metFORMIN HCL 500 MG TAB PO SCH (18:15)
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
[2018-07-27 20:40] VITALS: BP 103/59
[2018-07-27] MEDS: CARVEDILOL 25 MG TABLET PO SCH (21:00)
[2018-07-27] MEDS: INSULIN GLARGINE 100 U/ML 3 ML PEN SUBQ SCH (21:27)
[2018-07-27] MEDS: INSULIN HUM LISPRO 100 UN/ML 3 ML VIAL SUBQ PRN (21:28)
[2018-07-27] MEDS: GABAPENTIN 100 MG CAP PO SCH (21:29)
[2018-07-27] MEDS: ATORVASTATIN 10 MG TAB PO SCH (21:29)
[2018-07-27] MEDS: DOCUSATE SODIUM 100 MG CAP PO SCH (21:29)
[2018-07-28] MEDS: traMADol 50 MG TAB PO PRN ×4 (01:17→21:06)
[2018-07-28] MEDS: ACETAMINOPHEN 325 MG TAB PO PRN ×2 (01:17→08:37)
[2018-07-28] MEDS: ALBUTEROL/IPRATROPIUM 3 ML NEB NEB SCH ×6 (02:02→22:00)
[2018-07-28] MEDS: BUDESO/FORMOT 160/4.5 MCG 6 GM INH SCH ×2 (05:56→17:27)
[2018-07-28 08:11] VITALS: BP 117/69
[2018-07-28] MEDS: DOCUSATE SODIUM 100 MG CAP PO SCH ×2 (08:37→21:07)
[2018-07-28] MEDS: CITALOPRAM HYDROBROM 20 MG TAB PO SCH (08:37)
[2018-07-28] MEDS: metFORMIN HCL 500 MG TAB PO SCH ×2 (08:38→17:35)
[2018-07-28] MEDS: POLYETHYLENE GLYCOL 17 GM PKT PO SCH (08:38)
[2018-07-28] MEDS: ALLOPURINOL 300 MG TAB PO SCH (08:39)
[2018-07-28] MEDS: NICOTINE 14 MG/24 HR PATCH TD SCH (08:39)
[2018-07-28] MEDS: PANTOPRAZOLE SOD 40 MG TABEC PO SCH (08:40)
[2018-07-28] MEDS: ENOXAPARIN 40 MG/0.4ML SYR SC SCH (08:41)
[2018-07-28] MEDS: INSULIN GLARGINE 100 U/ML 3 ML PEN SUBQ SCH ×2 (08:41→21:05)
[2018-07-28] MEDS: CARVEDILOL 25 MG TABLET PO SCH ×2 (08:41→21:07)
[2018-07-28] MEDS: GABAPENTIN 100 MG CAP PO SCH ×2 (08:42→21:06)
[2018-07-28] MEDS ORDERED: LOSARTAN POTASSIUM 50 MG TAB PO SCH (09:00)
[2018-07-28] MEDS ORDERED: amLODIPine BESYL(*) 5 MG TAB PO SCH (09:00)
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
[2018-07-28 16:35] VITALS: BP 116/68
[2018-07-28] MEDS: INSULIN HUM LISPRO 100 UN/ML 3 ML VIAL SUBQ PRN ×2 (17:51→21:06)
[2018-07-28 20:58] VITALS: BP 140/88
[2018-07-28] MEDS: ATORVASTATIN 10 MG TAB PO SCH (21:06)
[2018-07-28] MEDS: TERAZOSIN HCL 1 MG CAP PO SCH (21:07)
[2018-07-29] MEDS: ACETAMINOPHEN 325 MG TAB PO PRN ×3 (01:15→16:49)
[2018-07-29] MEDS: traMADol 50 MG TAB PO PRN ×3 (01:15→16:49)
[2018-07-29] MEDS: ALBUTEROL/IPRATROPIUM 3 ML NEB NEB SCH ×7 (02:00→18:42)
[2018-07-29] MEDS: BUDESO/FORMOT 160/4.5 MCG 6 GM INH SCH ×2 (06:01→17:21)
[2018-07-29 07:50] VITALS: BP 126/81
[2018-07-29] MEDS: metFORMIN HCL 500 MG TAB PO SCH ×2 (08:06→16:49)
[2018-07-29] MEDS: GABAPENTIN 100 MG CAP PO SCH ×2 (08:29→20:54)
[2018-07-29] MEDS: POLYETHYLENE GLYCOL 17 GM PKT PO SCH (08:29)
[2018-07-29] MEDS: ALLOPURINOL 300 MG TAB PO SCH (08:29)
[2018-07-29] MEDS: ENOXAPARIN 40 MG/0.4ML SYR SC SCH (08:29)
[2018-07-29] MEDS: PANTOPRAZOLE SOD 40 MG TABEC PO SCH (08:30)
[2018-07-29] MEDS: DOCUSATE SODIUM 100 MG CAP PO SCH ×2 (08:30→20:53)
[2018-07-29] MEDS: CITALOPRAM HYDROBROM 20 MG TAB PO SCH (08:30)
[2018-07-29] MEDS: NICOTINE 14 MG/24 HR PATCH TD SCH (08:31)
[2018-07-29] MEDS: INSULIN GLARGINE 100 U/ML 3 ML PEN SUBQ SCH ×2 (08:31→20:53)
[2018-07-29] MEDS: CARVEDILOL 25 MG TABLET PO SCH ×2 (08:33→20:54)
--- NOTE | 2018-07-29 10:55 | NUR ---
Physical Therapy Impression PT eval complete. Please see EMR Other Reports for details. Physical Therapy Goals 1. I bed mobility. 2. Mod I transfers. 3. Mod I gait x 150' with least restrictive device. 4. Mod I ascend/descend flight of stairs with rail. 5. SBA ascend/descend 3 stairs without rail. 6. Decrease TUG time by 2 seconds to <20.7 sec. as indicator of improved function. Patient's Goals
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
--- NOTE | 2018-07-29 15:32 | NUR ---
Occupational Therapy Impression MOCA completed with pt scoring 24/30. Normal >26/30. Areas of deficits noted are language and recall. Pt verbalizes he may benefit from tools and strategies to improve memory and medication management. Will follow up in future tx sessions. Continue POC. Occupational Therapy Goals 1) Pt will be Independent UB/LB dressing. 2) Pt will be Independent grooming/hygiene standing. 3) Pt will be Independent toileting. 4) Pt Coleman Index of ADLs score will improve by 2 points. 5) Pt will be SBA shower task. 6) Pt will be Min A medication management with education for strategies to improve adherence. Patient's Goal
[2018-07-29 16:45] VITALS: BP 134/78
[2018-07-29] MEDS ORDERED: CHOL100059 PO (18:13)
[2018-07-29] MEDS ORDERED: ALBU8.5H IH (18:13)
[2018-07-29] MEDS ORDERED: GABA-547 PO (18:13)
[2018-07-29] MEDS ORDERED: MULT-1167 PO (18:18)
[2018-07-29] MEDS ORDERED: AMLO-127 PO (18:18)
[2018-07-29] MEDS ORDERED: UBID100C48 PO (18:18)
[2018-07-29] MEDS ORDERED: MULT1CAP53 PO (18:18)
[2018-07-29] MEDS ORDERED: SODI104S3 (18:18)
[2018-07-29 20:45] VITALS: BP 148/81
[2018-07-29] MEDS: ATORVASTATIN 10 MG TAB PO SCH (20:54)
[2018-07-29] MEDS: TERAZOSIN HCL 1 MG CAP PO SCH (20:54)
[2018-07-30] MEDS: traMADol 50 MG TAB PO PRN (05:07)
[2018-07-30] MEDS: BUDESO/FORMOT 160/4.5 MCG 6 GM INH SCH ×2 (06:00→17:21)
[2018-07-30 08:00] VITALS: BP 127/75
[2018-07-30] MEDS: INSULIN GLARGINE 100 U/ML 3 ML PEN SUBQ SCH ×2 (08:35→20:28)
[2018-07-30] MEDS: metFORMIN HCL 500 MG TAB PO SCH ×2 (08:35→17:02)
[2018-07-30] MEDS: PANTOPRAZOLE SOD 40 MG TABEC PO SCH (08:35)
[2018-07-30] MEDS: DOCUSATE SODIUM 100 MG CAP PO SCH ×2 (08:35→20:20)
[2018-07-30] MEDS: ENOXAPARIN 40 MG/0.4ML SYR SC SCH (08:35)
[2018-07-30] MEDS: GABAPENTIN 100 MG CAP PO SCH ×2 (08:35→20:29)
[2018-07-30] MEDS: ALLOPURINOL 300 MG TAB PO SCH (08:35)
[2018-07-30] MEDS: POLYETHYLENE GLYCOL 17 GM PKT PO SCH (08:35)
[2018-07-30] MEDS: CITALOPRAM HYDROBROM 20 MG TAB PO SCH (08:35)
[2018-07-30] MEDS: NICOTINE 14 MG/24 HR PATCH TD SCH (08:37)
[2018-07-30] MEDS: ALBUTEROL/IPRATROPIUM 3 ML NEB NEB SCH ×4 (09:09→18:29)
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
[2018-07-30] MEDS: CARVEDILOL 25 MG TABLET PO SCH ×2 (10:10→20:29)
--- NOTE | 2018-07-30 11:46 | NUR ---
Occupational Therapy Impression Independent ambulation household distances with no assistive device. Education for O2 tubing management and 1-2 v/c's for mobility to promote safety and awareness of tubing. Independent UB/LB dressing. Independent toileting. Independent oral care sinkfront. Medication management task. Pt encouraged to obtain a medication materials planner/production planner and have family assist with setting-up as pt becomes familiar with tool. Pt verbalized understanding and motivated to obtain a medication materials planner/production planner. Pt nearing OT goals. Pt resistant to services, will continue to educate and encourage. Occupational Therapy Goals 1) Pt will be Independent UB/LB dressing. 2) Pt will be Independent grooming/hygiene standing. 3) Pt will be Independent toileting. 4) Pt Coleman Index of ADLs score will improve by 2 points. 5) Pt will be SBA shower task. 6) Pt will be Min A medication management with education for strategies to improve adherence. Patient's Goal
--- NOTE | 2018-07-30 14:15 | NUR ---
Physical Therapy Impression Pt anxious to d/c home. Pt completed sit to supine with Mayra and no bed rail. Pt nearly rolled out of bed with supine to sit and required SBA/CGA and cues for safety. Pt tolerated long distance ambulation with no AD and Mayra. Emphasis on O2 tubing management with simulation of home environment with multiple turns completed by pt. Pt with 2-3 losses of balance with turns, but he was able to right himself without assistance. PT encouraged pt to slow down with all mobility, and to stop ambulating while gathering O2 tubing.Pt with excellent tolerance to stair negotiation, he completed asc/desc 2x4 stairs with railing and Mayra. Instruction for stair negotiation with no railing, and use of cane to simulate entry into home, pt completed with SBA. Rec one more visit prior to d/c to further address safety with O2 tubing management. Also rec [facility] services for PT upon d/c, pt's daughter was agreeable with this plan, SW notified. Physical Therapy Goals 1. I bed mobility. 2. Mod I transfers. 3. Mod I gait x 150' with least restrictive device. 4. Mod I ascend/descend flight of stairs with rail. 5. SBA ascend/descend 3 stairs without rail. 6. Decrease TUG time by 2 seconds to <20.7 sec. as indicator of improved function. Patient's Goals
--- NOTE | 2018-07-30 15:21 | NUR ---
5-day and DC MDS completed with pt. C: 14, D: 04, E: no concerns, Q: active DC plans in progress, no referrals made yet. Pt still considering HHS, but plans to visit with dtr before deciding. SW will follow-up tomorrow with pt regarding DC needs.
[2018-07-30 16:09] VITALS: BP 120/75
[2018-07-30] MEDS: INSULIN HUM LISPRO 100 UN/ML 3 ML VIAL SUBQ PRN (17:02)
[2018-07-30] MEDS: ATORVASTATIN 10 MG TAB PO SCH (20:28)
[2018-07-30] MEDS: TERAZOSIN HCL 1 MG CAP PO SCH (20:29)
--- NOTE | 2018-07-31 07:02 | NUR ---
Resident has been generally confused this shift. Has not called appropriately at any time before OOB. Resident has demonstrated limited ability to manage nasal cannula does not know at what flow rate he uses it at home. Resident was found several times on RA. On one occasion, resident was found on RA walking into hallway, with only briefs on, carrying pillow in hand looking for "Genny," as he thought she was still here. It was approximately 0230. Guided resident safely to chair and placed NC at 2LPM.
[2018-07-31 07:20] VITALS: BP 148/84
[2018-07-31] MEDS: metFORMIN HCL 500 MG TAB PO SCH (08:36)
[2018-07-31] MEDS: PANTOPRAZOLE SOD 40 MG TABEC PO SCH (08:36)
[2018-07-31] MEDS: ALLOPURINOL 300 MG TAB PO SCH (08:36)
[2018-07-31] MEDS: NICOTINE 14 MG/24 HR PATCH TD SCH (08:37)
[2018-07-31] MEDS: CITALOPRAM HYDROBROM 20 MG TAB PO SCH (08:37)
[2018-07-31] MEDS: ENOXAPARIN 40 MG/0.4ML SYR SC SCH (08:37)
[2018-07-31] MEDS: GABAPENTIN 100 MG CAP PO SCH (08:37)
[2018-07-31] MEDS: DOCUSATE SODIUM 100 MG CAP PO SCH (08:38)
[2018-07-31] MEDS: POLYETHYLENE GLYCOL 17 GM PKT PO SCH (08:38)
[2018-07-31] MEDS: INSULIN GLARGINE 100 U/ML 3 ML PEN SUBQ SCH (08:38)
[2018-07-31] MEDS: CARVEDILOL 25 MG TABLET PO SCH (08:43)
[2018-07-31] MEDS: ALBUTEROL/IPRATROPIUM 3 ML NEB NEB SCH ×2 (08:59→13:15)
[2018-07-31] MEDS: BUDESO/FORMOT 160/4.5 MCG 6 GM INH SCH (09:00)
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
--- NOTE | 2018-07-31 10:50 | NUR ---
OCCUPATIONAL THERAPY Dressing Assistance: Independent Dressing Aid Required: None Bathing Assistance: Independent Bathing Equipment: Shower chair Home Assessment: Not Completed Feeding Assistance: Independent Feeding Specialized Equipment: None Toilet Use: Independent Verbalizes Needs: Yes Understands Precautions: Yes Cooperative: Yes Family Teaching: No Occupational Therapy Comment: Patient provided with medication seo manager for home use. He will benefit from supervision and assist to set-up seo manager and familiarize self with new tool.
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
--- NOTE | 2018-07-31 13:02 | Hospitalist Progress Note ---
Subjective Progress Notes Subjective He has done well on the current regimen of Lantus/Humalog/metformin. Physical Exam Vital Signs Date Time Temp Pulse Resp B/P (MAP) Pulse Ox O2 Delivery O2 Flow Rate FiO2 07/31/18 12:21 78 Room Air 07/31/18 09:08 71 16 07/31/18 09:01 2.0 07/31/18 07:20 98.6 148/84 (105) Intake and Output 07/31/18 07:00 Intake Total 1100 ml Balance 1100 ml Intake Oral 1100 ml # Voids 4 # Bowel Movements 5 General Appearance: Alert, Awake Item Value Date Time Whole Blood Glucose 98 mg/DL 07/31/18 1205 Whole Blood Glucose 118 mg/DL H 07/31/18 0758 Whole Blood Glucose 99 mg/DL 07/30/18 2027 Whole Blood Glucose 179 mg/DL H 07/30/18 1700 Whole Blood Glucose 93 mg/DL 07/30/18 1207 Assessment and Plan Problems: (1) Diabetes Status: Chronic Assessment & Plan: Will have him continue with the current regimen. He states he understands it very well and should be able to measure/inject/monitor without problems. [facility] Problem Qualifiers (1) Diabetes: Diabetes mellitus type: type 2 Diabetes mellitus terminal superintendent insulin use: with detention use Diabetes mellitus complication status: without complication Qualified Codes: E11.9 - Type 2 diabetes mellitus without complications; Z79.4 - terminal superintendent (current) use of insulin KAIDEN GARCIA MD Jul 31, 2018 13:02
[2018-07-31] MEDS ORDERED: LANI SUBQ (13:12)
[2018-07-31] MEDS ORDERED: TERA1CAP38 PO (13:12)
[2018-07-31] MEDS ORDERED: INSU100I35 SQ (13:12)
--- NOTE | 2018-07-31 13:54 | NUR ---
Physical Therapy Impression Pt alert and has just ambulated back from the [facility] in room. Pt notes that he is eager to discharge home later today, but is agreeable to address final goals and TUG test with PT. Pt is modified indep with transfers and ambulation without assistive device. TUG test completed in 15 seconds without assistive device. Pt manages O2 tubing well to keep it out from under feet while ambulating, but benefited from trng with O2 management on stairs and disconnecting from wall O2 to switch to portable tank. Pt notes that his daughter is looking into a variety of portable options, including portable concentrators. Pt on 1.5 L/min supplemental O2 while at rest in room but was increased to 3 L/min for increased exertion of ambulation in hallway in order to maintain sats >88%. Pt then required increase to 4 L/min with stairs in order to remain greater than 88% with that activity. Pt verbalized understanding of O2 management but would likely benefit from further trng and habituation of this skill with [facility] services in the home upon d/c. Physical Therapy Goals 1. I bed mobility. 2. Mod I transfers. 3. Mod I gait x 150' with least restrictive device. 4. Mod I ascend/descend flight of stairs with rail. 5. SBA ascend/descend 3 stairs without rail. 6. Decrease TUG time by 2 seconds to <20.7 sec. as indicator of improved function. Patient's Goals
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
--- NOTE | 2018-07-31 15:24 | NUR ---
PHYSICAL THERAPY INFORMATION TRANSFER SHEET BED MOBILITY: Indep TRANSFERS: Independent GAIT: 150 ' with No assistive device and managing O2 with Modified I/ AE Weightbearing Status: no restrictions STAIRS: 11 with rail Modified I/ AE. 3 without rail and SBA EXERCISES: Verbalizes Needs: Yes Understands Directions Yes Cooperative: Yes Family Teaching: Yes Physical Therapy Comment: Further habituation would be beneficial with transitioning to/from O2 concentrator and portable O2 tanks, as well as safety skills with O2 tubing in his home environment.
== END 2018-07-31 16:15 | disposition home or self-care (01) | DRG 949 ==
LOC: ECF 10:05
PROVIDERS: ADMIT Surgery; ATTEND Surgery
PROC: 5A09357 Assistance with Respiratory Ventilation, Less than 24 Consecutive Hours, Continuous Positive Airway Pressure (ICD-10-PCS; principal; 2018-07-27)
DX: S36.892D Contusion of other intra-abdominal organs, subsequent encounter (principal); Z68.41 Body mass index [BMI] 40.0-44.9, adult; R53.1 Weakness; S22.41XD Multiple fractures of ribs, right side, subsequent encounter for fracture with routine healing; S22.22XD Fracture of body of sternum, subsequent encounter for fracture with routine healing; E11.9 Type 2 diabetes mellitus without complications; E66.9 Obesity, unspecified; I10 Essential (primary) hypertension; J41.0 Simple chronic bronchitis; S00.83XD Contusion of other part of head, subsequent encounter; V87.7XXD Person injured in collision between other specified motor vehicles (traffic), subsequent encounter; Z79.4 Long term (current) use of insulin
CPT/HCPCS: 36416; 82948; 94640; 97162; 97166; J1650; J1815